=== PATIENT | female | born 1950 ===

== ENCOUNTER 2022-02-04 10:18 | Emergency (ER) | payer OTHER ==
[~2022-02-04] VITALS: Ht 167.6 cm; Wt 71.7 kg
[~2022-02-04 10:18] MED LIST: DOXYCYCLINE HY100 MG PO; TYLENOL-CODEINE1 TAB PO; ZOLOFT100 MG PO
[2022-02-04] MEDS ORDERED: WELLBUTRIN SR150 MG (10:35)
[2022-02-04] MEDS ORDERED: WELLBUTRIN XL300 MG PO (10:35)
== END 2022-02-04 16:06 | disposition home or self-care (01) ==
LOC: ER 10:18
DX: R10.13 Epigastric pain (principal)